=== PATIENT | female | born 1980 | race Caucasian/White ===

== ENCOUNTER 2018-02-10 14:59 | Emergency (ER) | payer MEDICAID ==
[~2018-02-10] VITALS: Ht 167.6 cm; Wt 65.8 kg
[2018-02-10 15:15] VITALS: BP 154/72
== END 2018-02-10 17:23 | disposition home or self-care (01) ==
LOC: ER 15:01
DX: B97.89 Other viral agents as the cause of diseases classified elsewhere (principal); J02.8 Acute pharyngitis due to other specified organisms
CPT/HCPCS: 87070; 87880; 99284; A4606; Z7610; 86403-TC